=== PATIENT | male | born 1990 | race Hispanic/Latino ===

== ENCOUNTER 2024-11-23 20:23 | Emergency (ER) | payer OTHER, SELFPAY ==
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
[2024-11-23] MEDS: NEOMYCIN/POLYMYXIN/BACITRACIN OINTMENT PACKET 4 PACKET TOPICAL (20:40)
[2024-11-23] MEDS: LIDOCAINE 1% LOCAL INJ 10 ML VIAL INFILTRATE (20:40)
[2024-11-23] MEDS: CEPHALEXIN 500 MG CAPSULE PO (20:40)
[2024-11-23 20:59] VITALS: BP 153/112; PULSE 106; RESP 15; TEMP 36.9; O2SAT 99
[2024-11-23 21:34] VITALS: BP 122/85; PULSE 100; RESP 20; TEMP 36.9; O2SAT 96
== END 2024-11-23 21:38 | disposition home or self-care (01) ==
PROVIDERS: Emergency Provider Emergency Medicine; Referring Provider Family Medicine
DX: S81.012A Laceration without foreign body, left knee, initial encounter (principal); S50.312A Abrasion of left elbow, initial encounter; V28.09XA Other motorcycle driver injured in noncollision transport accident in nontraffic accident, initial encounter
CPT/HCPCS: 12001; 70450; 72125; 73564; 99284; A9270; J2003